=== PATIENT | male | born 1935 | race Caucasian/White ===

== ENCOUNTER 2019-02-10 08:28 | Day surgery (SDC) | payer MEDICARE, OTHER ==
[~2019-02-10] VITALS: Ht 188 cm; Wt 113.7 kg
[2019-02-10] MEDS ORDERED: LACTATED RINGERS 1,000 ML IV SCH (08:56)
[2019-02-10 09:30] VITALS: BP 125/76
[2019-02-10] MEDS ORDERED: KETAMINE 10 MG/ML, 20ML ONE (09:38)
[2019-02-10] MEDS ORDERED: PIOG30TA23 PO (09:39)
[2019-02-10] MEDS ORDERED: ALLO300T PO (09:39)
[2019-02-10] MEDS ORDERED: PROPOFOL 10 MG/ML, 20ML ONE (09:39)
[2019-02-10] MEDS ORDERED: METF500T17 PO (09:39)
[2019-02-10] MEDS ORDERED: TIOT18CA INH (09:39)
[2019-02-10] MEDS ORDERED: ASPI-496 PO (09:39)
[2019-02-10] MEDS ORDERED: LISI40TA PO (09:39)
[2019-02-10] MEDS ORDERED: ZOLP10TA PO (09:39)
[2019-02-10] MEDS ORDERED: ACETAMINOPHEN 325 MG TABLET PO PRN (10:30)
[2019-02-10] MEDS ORDERED: OXYcodone 5 MG/5 ML ORAL.SOL UDC PO PRN (10:30)
[2019-02-10] MEDS ORDERED: FENTANYL PF 100 MCG/2ML IV PRN (10:30)
[2019-02-10] MEDS ORDERED: ONDANSETRON 2MG/ML, 2ML IV PRN (10:30)
[2019-02-10] MEDS ORDERED: ONDANSETRON ODT 8 MG PO PRN (10:30)
== END 2019-02-10 11:20 | disposition home or self-care (01) ==
LOC: OUT 08:28
PROVIDERS: ATTEND Internal Medicine Gastroenterology
DX: D12.4 Benign neoplasm of descending colon (principal); K57.30 Diverticulosis of large intestine without perforation or abscess without bleeding; K64.0 First degree hemorrhoids; D50.9 Iron deficiency anemia, unspecified; I10 Essential (primary) hypertension; E11.9 Type 2 diabetes mellitus without complications; J44.9 Chronic obstructive pulmonary disease, unspecified; I48.91 Unspecified atrial fibrillation; M10.9 Gout, unspecified; Z86.010 Personal history of colon polyps; Z79.899 Other long term (current) drug therapy; Z79.84 Long term (current) use of oral hypoglycemic drugs; Z99.81 Dependence on supplemental oxygen; Z86.73 Personal history of transient ischemic attack (TIA), and cerebral infarction without residual deficits; Z79.82 Long term (current) use of aspirin; Z87.891 Personal history of nicotine dependence; Z72.89 Other problems related to lifestyle
CPT/HCPCS: 43239; 45385; 45390; 82962; 88305; 93005; J2704; J7120